=== PATIENT | female | born 1965 | race Caucasian/White ===

== ENCOUNTER 2019-02-23 08:39 | Outpatient (CLI) | payer OTHER ==
--- NOTE | 2019-02-23 09:39 | MMO ---
Bilateral MAMMO Bilat Screen [facility]. CLINICAL HISTORY: Patient is 53 years old and is seen for screening. The patient has a history of bilateral Implants in 2008 - . VIEWS: The views performed were: bilateral craniocaudal; bilateral mediolateral oblique; and bilateral Implant displaced with tomosynthesis. MAMMOGRAM FINDINGS: There are scattered fibroglandular densities. Finding 1: There is a ruptured implant seen in the left breast. Finding 2: There are benign appearing and vascular calcifications seen in both breasts. There are no suspicious masses, suspicious calcifications, or new areas of architectural distortion. IMPRESSION: THERE IS NO MAMMOGRAPHIC EVIDENCE OF MALIGNANCY. A ROUTINE FOLLOW-UP MAMMOGRAM IN 1 YEAR IS RECOMMENDED. THE RESULTS OF THIS EXAM WERE SENT TO THE PATIENT. ACR BI-RADS Category 2 - Benign finding MAMMOGRAPHY NOTE: 1. A negative mammogram report should not delay a biopsy if a dominant of clinically suspicious mass is present. 2. Approximately 10% to 15% of breast cancers are not detected by mammography. 3. Adenosis and dense breasts may obscure an underlying neoplasm.
== END 2019-02-23 08:40 | disposition home or self-care (01) ==
LOC: BICMAMMO 08:39
PROVIDERS: ATTEND Plastic Surgery
DX: Z12.31 Encounter for screening mammogram for malignant neoplasm of breast (principal); Z98.82 Breast implant status
CPT/HCPCS: 77063; 77067